=== PATIENT | male | born 1980 | race Two or more races ===

== ENCOUNTER 2019-11-20 19:39 | Emergency (ER) | payer BC ==
[2019-11-20 20:02] VITALS: BMI 33.9
[2019-11-20] MEDS ORDERED: SODIUM CHLORIDE 1,000 ML IV STA (20:39)
[2019-11-20] MEDS ORDERED: ONDANSETRON 4 MG/2 ML VIAL IVPUSH ONE (20:40)
[2019-11-20 21:47] LABS: EPI CELLS 8 /uL (0-25.1); HYALINE CASTS 4 /uL (0-3.1); URINE APPEARANCE TURBID; URINE BILIRUBIN 1+ (NEGATIVE); URINE COLOR RED; URINE GLUCOSE (UA) NEGATIVE (NEGATIVE); URINE KETONE NEGATIVE (NEGATIVE); URINE LEUK ESTERASE 1+ (NEGATIVE); URINE NITRITE POSITIVE (NEGATIVE); URINE PROTEIN 2+ (NEGATIVE); URINE RBC 15508 /uL (0-23.9); URINE WBC 75 /uL (0-25.8)
--- NOTE | 2019-11-20 21:56 | PDOC ---
History of Present Illness - General Chief Complaint: Pain, Acute Stated Complaint: HEMATURIA Time Seen by Provider: 11/20/19 20:23 History Source: Patient Exam Limitations: No Limitations - History of Present Illness Initial Comments: 11/20/19 21:53 Patient is a 39-year-old male who presents to the ED with complaint of left- sided flank pain that he has had since this morning. He states he had a similar pain 4 days ago which resolved after taking 2 Tylenol. The patient states that today a similar pain started and is unrelenting. He took Tylenol without relief. He denies any fevers or chills. He states he has to bear down to urinate and noticed some blood in his urine this evening which caused him to come to the ED. The patient states he was told he had a kidney stone roughly 1 year ago and the pain feels similar. He denies any past medical history or allergies to medications. Past History - Medical History Allergies/Adverse Reactions: Allergies Allergy/AdvReac Type Severity Reaction Status Date / Time No Known Allergies Allergy Verified 11/20/19 21:36 Home Medications: Ambulatory Orders Hydrocodone/Acetaminophen [[place] 5-325 Tablet] 1 each PO TID PRN #9 tablet MDD 3 11/20/19 Tamsulosin HCl [Flomax] 0.4 mg PO DAILY #7 cap.er.24h 11/20/19 levoFLOXacin [Levaquin] 750 mg PO DAILY #5 tab 11/20/19 COPD: No - Psycho-Social/Smoking History Smoking History: Former smoker Have you smoked in the past 12 months: No Information on smoking cessation initiated: No - Substance Abuse Hx (Audit-C & DAST Scrn) How often the patient has a drink containing alcohol: Never Score: In Men: 4 or > Positive; In Women: 3 or > Positive: 0 Screen Result (Pos requires Nsg. Audit-10AR): Negative In the last yr the pt used illegal drug/Rx for NonMed reason: No Score: Yes response is considered Positive: 0 Screen Result (Positive result requires Nsg. DAST-10): Negative Review of Systems - Review of Systems Comments:: 11/20/19 21:55 - Review of Systems Able to Perform ROS?: Yes Constitutional: No: Fever, Chills, Loss of Appetite, Night Sweats, Weakness HEENTM: No: Eye Pain, Vision changes, Ear Pain, Throat Pain, Throat Swelling, Mouth Pain, Difficulty Swallowing Respiratory: No: Cough, Shortness of Breath, Wheezing, Sputum Production Cardiac (ROS): No: Chest Pain, Chest Tightness, Palpitations, Irregular Heart Beat, Edema ABD/GI: No: Nausea, Vomiting, Abdominal Pain, Diarrhea : Positive: Hematuria, urinary pressure, left flank pain Musculoskeletal: No: Muscle Pain, Back Pain, Joint Pain, Muscle Weakness, Neck Pain Integumentary: No: Lesions, Rash Neurological: No: Headache, Numbness, Tingling, Weakness, Speech Difficulties *Physical Exam - Vital Signs Last Vital Signs Temp Pulse Resp BP Pulse Ox 98.4 F 87 19 147/90 100 11/20/19 19:47 11/20/19 19:47 11/20/19 19:47 11/20/19 19:47 11/20/19 19:47 - Physical Exam 11/20/19 21:55 - Physical Exam General Appearance: Nourished, Appropriately Dressed, No Distress HEENT: EOMI, Normal Voice, Hearing Grossly Normal Neck: Supple, No Lymphadenopathy (R), No Lymphadenopathy (L), No Rigidity, No Decreased range of motion Respiratory/Chest: Lungs Clear, Normal Breath Sounds. No Respiratory Distress, No Accessory Muscle Use Cardiovascular: Regular Rhythm, Regular Rate, S1, S2 Gastrointestinal/Abdominal: Normal Bowel Sounds, Soft. No Guarding, No Rebound, No Rigidity; moderate left flank tenderness to palpation with moderate left CVA tenderness. Musculoskeletal: Normal Inspection. No Decreased Range of Motion Extremity: Normal Capillary Refill, Normal Inspection Integumentary: Normal Color, Dry. 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 NML intact, Fully Oriented, Alert, Normal Mood/Affect, Normal Response ED Treatment Course - LABORATORY CBC & Chemistry Diagram: 11/20/19 21:56 11/20/19 21:56 - ADDITIONAL ORDERS Additional order review: Laboratory Results 11/20/19 20:47 Urine Color Red Urine Appearance Turbid Urine pH 5.0 Ur Specific [place] 1.036 H Urine Protein 2+ H Urine Glucose (UA) Negative Urine Ketones Negative Urine Blood 2+ H Urine Nitrite Positive H Urine Bilirubin 1+ H Urine Urobilinogen 1.0 Ur Leukocyte Esterase 1+ H Urine WBC (Auto) 75 Urine RBC (Auto) 35227 Urine Casts (Auto) 4 U Epithel Cells (Auto) 8 - RADIOLOGY Radiology Studies Ordered: Category Date Time Status SPIRAL- RENAL-STONE CT [CT] Stat CT Scan 11/20/19 20:40 Ordered Medical Decision Making - Medical Decision Making 11/20/19 21:56 Assessment: Patient is a 39-year-old male with left flank pain, hematuria and bladder pressure. Plan: -Saline lock ordered -UA, urine culture ordered -Labs ordered -Spiral CT ordered -Patient has declined analgesia at this time -Zofran ordered -Will reassess 11/20/19 22:46 Patient's UA significant for hematuria with positive nitrite consistent with infection. Patient brought to CT scan to rule out infected stone. Ceftriaxone 1 g ordered. 11/20/19 23:[address] Davila of urology for left 4mm obstructing stone with hydro nephrosis and infection. 11/20/19 23:[address] Pepe who states that the patient can be discharged on Levaquin and see him in the office first thing tomorrow morning. We will also send Fl omax and [place] to the patient's pharmacy. The patient has been made aware of the findings of an obstructing stone on the left and has been made aware that he must return to the emergency department immediately if he develops high fevers, shaking chills or profuse vomiting. The patient understands and agrees with this treatment plan and the patient is stable for discharge. Discharge - Discharge Information Problems reviewed: Yes Clinical Impression/Diagnosis: Obstruction of left ureteropelvic junction due to stone, Renal colic on left side Condition: Stable Disposition: HOME - Additional Discharge Information Prescriptions: Tamsulosin HCl [Flomax] 0.4 mg PO DAILY #7 cap.er.24h levoFLOXacin [Levaquin] 750 mg PO DAILY #5 tab Hydrocodone/Acetaminophen [[place] 5-325 Tablet] 1 each PO TID PRN #9 tablet MDD 3 PRN Reason: Pain - Follow up/Referral Referrals: Delroy Pepe MD., MD [Staff Physician] - Call tomorrow (Must follow-up in Dr. Pepe's office first thing tomorrow morning. Call at 8 AM.) - Patient Discharge Instructions Patient Printed Discharge Instructions: DI for Kidney Stones, DI for Urinary Tract Infection (UTI) Additional Instructions: You have an infected, obstructing stone on the left side. Drink plenty of fluids and take the antibiotics as prescribed. Also take the Flomax as prescribed. You can take the [place], pain medication, as needed for severe pain. Be sure to return to the emergency department immediately for high fevers, shaking chills, profuse vomiting or any other worsening symptoms. Follow-up with Dr. Pepe in his office tomorrow, call at 8 AM for an appointment. - Post Discharge Activity Work/Back to School Note: Back to Work
[2019-11-20 22:03] LABS: URINE BACTERIA 0.9 /uL (0-1359)
[2019-11-20 22:06] LABS: EOS % 1.8 % (0-4.5); HEMATOCRIT 43.2 % (35.4-49); HEMOGLOBIN 14.2 GM/dL (11.7-16.9); LYMPH % 31.6 % (8-40); MEAN CELL VOLUME 78.8 fl (80-96); MONO % 8.9 % (3.8-10.2); NEUT % 56.7 % (42.8-82.8); PLATELET COUNT 221 K/MM3 (134-434); RBC 5.48 M/mm3 (4.00-5.60); RDW 13.8 % (11.9-15.9); WHITE BLOOD COUNT 7.5 K/mm3 (4.0-10.0)
[2019-11-20 22:32] LABS: ALBUMIN 4.4 g/dl (3.4-5.0); BLOOD UREA NITROGEN 10.9 mg/dL (7-18); CALCIUM 9.3 mg/dL (8.5-10.1); CREATININE 0.8 mg/dL (0.55-1.3); POTASSIUM 4.6 mmol/L (3.5-5.1); TOT PROT 7.8 g/dl (6.4-8.2)
[2019-11-20] MEDS ORDERED: CEFTRIAXONE 1 GM/50 ML BAG ONE (22:36)
[2019-11-20] MEDS ORDERED: CEFTRIAXONE 1 GM in DEXTROSE 5%-WATER - 50 ML IVPB ONE (22:45)
[2019-11-20 22:47] LABS: BILIRUBIN,TOTAL 0.2 mg/dL (0.2-1)
[2019-11-21 00:52] VITALS: BP 148/80; PULSE 70; TEMP 98
== END 2019-11-21 00:30 | disposition home or self-care (01) ==
LOC: JER 19:39
PROC: 3E03329 Introduction of Other Anti-infective into Peripheral Vein, Percutaneous Approach (ICD-10-PCS; principal; 2019-11-20)
PROC: 3E033GC Introduction of Other Therapeutic Substance into Peripheral Vein, Percutaneous Approach (ICD-10-PCS; 2019-11-20)
PROC: 3E0337Z Introduction of Electrolytic and Water Balance Substance into Peripheral Vein, Percutaneous Approach (ICD-10-PCS; 2019-11-20)
DX: N13.0 Hydronephrosis with ureteropelvic junction obstruction (principal); N23 Unspecified renal colic
CPT/HCPCS: 36415; 74176-TC; 80053; 81003; 83690; 85025; 87086; 99284-25

== ENCOUNTER 2019-12-21 03:40 | Emergency (ER) | payer BC ==
[2019-12-21 04:14] VITALS: TEMP 98.2
[2019-12-21 04:43] LABS: BASO % 0.8 % (0-2.0); HEMATOCRIT 44.2 % (35.4-49); HEMOGLOBIN 14.8 GM/dL (11.7-16.9); LYMPH % 43.4 % (8-40); MCH 26.6 pg (25.7-33.7); MCHC 33.5 g/dl (32.0-35.9); MEAN CELL VOLUME 79.4 fl (80-96); MEAN PLT VOLUME 8.5 fl (7.5-11.1); MONO % 10.8 % (3.8-10.2); PLATELET COUNT 190 K/MM3 (134-434); RBC 5.57 M/mm3 (4.00-5.60); RDW 13.9 % (11.9-15.9); WHITE BLOOD COUNT 7.2 K/mm3 (4.0-10.0)
[2019-12-21 04:47] LABS: EPI CELLS 5 /uL (0-25.1); HYALINE CASTS 0 /uL (0-3.1); URINE APPEARANCE CLOUDY; URINE BACTERIA 6 /uL (0-1359); URINE BILIRUBIN NEGATIVE (NEGATIVE); URINE COLOR DK YELLOW; URINE GLUCOSE (UA) NEGATIVE (NEGATIVE); URINE KETONE NEGATIVE (NEGATIVE); URINE LEUK ESTERASE TRACE (NEGATIVE); URINE NITRITE NEGATIVE (NEGATIVE); URINE PROTEIN 2+ (NEGATIVE); URINE RBC 3559 /uL (0-23.9); URINE WBC 15 /uL (0-25.8)
--- OUTSIDE RECORDS SUMMARY | 2019-12-21 04:54 | XMS ---
:1980 Author Organization [facility] Support Name Relationship Address Phone [facility] [place] [address] ZOLTAN PAYAN [address] [place] [address] ZOLTAN PAYAN Spouse [address] [place] [place] [address] Re-disclosure Warning The records that you are about to access may contain information from federally- assisted alcohol or drug abuse programs. If such information is present, then the following federally mandated warning applies: This information has been disclosed to you from records protected by federal confidentiality rules (42 CFR part 2). The federal rules prohibit you from making any further disclosure of this information unless further disclosure is expressly permitted by the written consent of the person to whom it pertains or as otherwise permitted by 42 CFR part 2. A general authorization for the release of medical or other information is NOT sufficient for this purpose. The Federal rules restrict any use of the information to criminally investigate or prosecute any alcohol or drug abuse patient.The records that you are about to access may contain highly sensitive health information, the redisclosure of which is protected by Article 27-F of the [facility] Public Health law. If you continue you may haveaccess to information: Regarding HIV / AIDS; Provided by facilities licensed or operated by the [facility] Office of Mental Health; or Provided by the [facility] Office for People With Developmental Disabilities. If such information is present, then the following [facility] mandated warning applies: This information has been disclosed to you from confidential records which are protected by state law. State law prohibits you from making any further disclosure of this information without the specific written consent of the person to whom it pertains, or as otherwise permitted by law. Any unauthorized further disclosure in violation of state law may result in a fine or [place] health care facility sentence or both. A general authorization for the release of medical or other information is NOT sufficient authorization for further disclosure. Insurance Providers Payer name Policy type / Policy ID Covered Covered democrat's Policy Plan Coverage type democrat ID relationship to Garnett Information garnett [employer] PPO [id number] SP [id number] Results ID Date Data Source [id number] 07/24/2019 04:14:00 PM EDT [facility] Name Value Range Interpretation Code Description Data Chata rce(s) Supporting Document(s ) COV2 [facility] This lab was ordered by NATASHA ALEJANDRO and reported by [facility] Procedure
[2019-12-21] MEDS ORDERED: ACETAMINOPHEN 1000 MG/100 ML VIAL (NON FORMULARY) IVPB ONE (05:07)
[2019-12-21] MEDS ORDERED: SODIUM CHLORIDE 0.9% 500 ML INFUS.BAG IV ONE (05:07)
[2019-12-21 05:15] LABS: POTASSIUM 4.3 mmol/L (3.5-5.1)
[2019-12-21 05:18] LABS: CALCIUM 9.1 mg/dL (8.5-10.1)
[2019-12-21 05:20] LABS: ALBUMIN 4.6 g/dl (3.4-5.0); BLOOD UREA NITROGEN 12.6 mg/dL (7-18)
[2019-12-21] MEDS ORDERED: ACETAMINOPHEN INJECTION 100 ML IVPB ONE (05:20)
[2019-12-21 05:24] LABS: BILIRUBIN,TOTAL 0.2 mg/dL (0.2-1); TOT PROT 7.8 g/dl (6.4-8.2)
[2019-12-21] MEDS ORDERED: KETOROLAC TROMETHAMINE 30 MG/1 ML VIAL IVPUSH ONE (05:24)
[2019-12-21 05:42] LABS: URINE CRYSTALS 2+ /hpf
--- NOTE | 2019-12-21 05:42 | PDOC ---
History of Present Illness - General Chief Complaint: Pain Stated Complaint: PAIN Time Seen by Provider: 12/21/19 04:29 History Source: Patient Exam Limitations: No Limitations - History of Present Illness Initial Comments: 12/21/19 05:38 39M PMH renal stones presenting with one day of on/off left flank pain and hematuria. Pain is described as feeling exactly the same as prior kidney stones. Denies n/v, f/c. No testicular pain or swelling. Requesting Dr. Dereje Myers for Urology. Past History - Medical History Allergies/Adverse Reactions: Allergies Allergy/AdvReac Type Severity Reaction Status Date / Time No Known Allergies Allergy Verified 11/20/19 21:36 Home Medications: Ambulatory Orders Hydrocodone/Acetaminophen [[place] 5-325 Tablet] 1 each PO TID PRN #9 tablet MDD 3 11/20/19 Tamsulosin HCl [Flomax] 0.4 mg PO DAILY #7 cap.er.24h 11/20/19 levoFLOXacin [Levaquin] 750 mg PO DAILY #5 tab 11/20/19 COPD: No - Psycho-Social/Smoking History Smoking History: Former smoker Have you smoked in the past 12 months: No If you are a former smoker, when did you quit?: 2019 Information on smoking cessation initiated: No - Substance Abuse Hx (Audit-C & DAST Scrn) How often the patient has a drink containing alcohol: Monthly or less Score: In Men: 4 or > Positive; In Women: 3 or > Positive: 1 Screen Result (Pos requires Nsg. Audit-10AR): Negative In the last yr the pt used illegal drug/Rx for NonMed reason: No Score: Yes response is considered Positive: 0 Screen Result (Positive result requires Nsg. DAST-10): Negative Review of Systems - Review of Systems Comments:: CONSTITUTIONAL: Denies F / C HEENT: Denies headache RESP: Denies SOB, cough CARD: Denies chest pain GI: + left flank pain. Denies N / V / D, bloody stool, inability to tolerate PO : + hematuria NEURO: Denies numbness, tingling, weakness MSK: Denies back pain SKIN: Denies rashes *Physical Exam - Vital Signs Last Vital Signs Temp Pulse Resp BP Pulse Ox 98.2 F 72 16 164/96 99 12/21/19 04:11 12/21/19 04:11 12/21/19 04:11 12/21/19 04:11 12/21/19 04:11 - Physical Exam GEN: Well appearing, NAD, comfortable. AAOx3. HEENT: NC/AT, EOMI, PERRL. No facial asymmetry. Moist mucous membranes. Normal voice. Supple neck w/ FROM. CV: S1/S2, RRR, no m/r/g LUNG: CTAB, no wheezes, crackles, rales, rhonchi. GI: Soft, ndnt, +BS, no guarding, no rebound. No masses. Neg CVAT b/l. MSK: No obvious deformities of all extremities. SKIN: Warm, dry, no rashes appreciated. PSYCH: Normal mood and affect. NEURO: Moving all extremities well. ambulatory. ED Treatment Course - LABORATORY CBC & Chemistry Diagram: 12/21/19 04:30 12/21/19 04:30 - ADDITIONAL ORDERS Additional order review: Laboratory Results 12/21/19 12/21/19 04:30 04:30 Sodium 139 Potassium 4.3 Chloride 106 Carbon Dioxide 29 Anion Gap 4 L BUN 12.6 Creatinine 1.0 Est GFR (CKD-EPI)AfAm 109.40 Est GFR (CKD-EPI)NonAf 94.39 Random Glucose 108 H Calcium 9.1 Total Bilirubin 0.2 AST 28 ALT 70 H Alkaline Phosphatase 89 Total Protein 7.8 Albumin 4.6 Urine Color Dk yellow Urine Appearance Cloudy Urine pH 5.0 Ur Specific [place] 1.034 Urine Protein 2+ H Urine Glucose (UA) Negative Urine Ketones Negative Urine Blood 3+ H Urine Nitrite Negative Urine Bilirubin Negative Urine Urobilinogen 1.0 Ur Leukocyte Esterase Trace Urine WBC (Auto) 15 Urine RBC (Auto) 3559 Urine Casts (Auto) 0 U Epithel Cells (Auto) 5 Urine Bacteria (Auto) 6 12/21/19 04:30 RBC 5.57 MCV 79.4 L MCHC 33.5 RDW 13.9 MPV 8.5 Neutrophils % 41.0 L D Lymphocytes % 43.4 H D Monocytes % 10.8 H Eosinophils % 4.0 D Basophils % 0.8 - RADIOLOGY Radiology Studies Ordered: Category Date Time Status SPIRAL- RENAL-STONE CT [CT] Stat CT Scan 12/21/19 05:07 Ordered - Medications Given in the ED: ED Medications Discontinued Medications Generic Name Dose Route Start Last Admin Trade Name Dalton PRN Reason Stop Dose Admin Acetaminophen 1,000 mg 12/21/19 05:07 12/21/19 05:24 Ofirmev Injection - IVPB 12/21/19 05:08 1,000 mg ONCE ONE Administration Sodium Chloride 1,000 ml 12/21/19 05:07 12/21/19 05:24 Normal Saline - IV 12/21/19 05:08 1,000 ml ONCE ONE Administration Medical Decision Making - Medical Decision Making 39M w/ left flank pain and hematuria similar to his prior kidney stones. Afebrile. Benign exam. Very likely renal stone. - CBC, CMP - UA - Spiral CT - Fluids, toradol 12/21/19 06:41 labs reviewed will sign out to day team for further management 12/21/19 06:[address] [facility] [address] A/P IMPRESSION EXAM: CT abdomen and pelvis without contrast HISTORY: Evaluate for left renal stone COMPARISON: None. FINDINGS: Lung bases are clear. The visualized cardiac chambers are normal size and configuration. There is mild left hydronephrosis and perinephric edema secondary to a 5 mm mid left ureteral stone. Small right renal stone is noted. Normal liver, gallbladder, pancreas, spleen, adrenal glands . The stomach and abdominal small and large bowel are normal. There is no aortic aneurysm. There is no significant retroperitoneal lymphadenopathy. The pelvic small and large bowel are normal. The appendix is normal The urinary bladder and prostate gland are normal. No pelvic free fluid is identified. There is no significant pelvic lymphadenopathy. Small fat-containing bilateral inguinal hernias are noted. IMPRESSION: Mottled left hydronephrosis and perinephric edema secondary to a 5 mm mid left ureteral stone. Small right renal stone. One or more of the following dose reduction techniques were used: automated exposure control, adjustment of the mA and/or kV according to patient size, use of iterative reconstructive technique. THIS DOCUMENT HAS BEEN ELECTRONICALLY SIGNED Estevan Oro MD 12/21/2019 06:44 JASE Gomez Please call Imaging Transcript Evaluator [phone] ([phone]) with questions. INTERPRETING RADIOLOGIST: Hector Oro MD Electronically Signed: Dec 21, 2019 06:46AM EDT will sign out to day team for further management urology c/s admit (no PCP) Discharge - Discharge Information Problems reviewed: Yes Clinical Impression/Diagnosis: Left renal stone Condition: Stable - Admission Yes - Follow up/Referral Referrals: [facility] [place] [Provider Group] - Patient Discharge Instructions - Post Discharge Activity
[2019-12-21] MEDS ORDERED: KETOROLAC TROMETHAMINE 30 MG/1 ML VIAL ONE (05:43)
[2019-12-21] MEDS ORDERED: TAMSULOSIN HCL 0.4 MG CAP PO ONE (06:20)
--- NOTE | 2019-12-21 06:20 | PDOC ---
Attending Attestation - Resident Resident Name: Dwain Rapp - ED Attending Attestation I have performed the following: I have examined & evaluated the patient, The case was reviewed & discussed with the resident, I agree w/resident's findings & plan - HPI HPI: 12/21/19 06:19 Pt comes with renal colic and a hx of kidney stones in the past. He has hematuria - Physicial Exam PE: 12/21/19 06:53 Pt has left flank pain. Pt afebrile Pt has normal vitals heart RRR lungs CTAb no flank pain - Medical Decision Making 12/21/19 06:52 Patient Name: DANUTA PAYAN THIS IS A PRELIMINARY REPORT DATE OF SERVICE: 2019-12-21 06:13:45 IMAGES: 545 EXAM: CT abdomen and pelvis without contrast HISTORY: Evaluate for left renal stone COMPARISON: None. FINDINGS: Lung bases are clear. The visualized cardiac chambers are normal size and configuration. There is mild left hydronephrosis and perinephric edema secondary to a 5 mm mid left ureteral stone. Small right renal stone is noted. Normal liver, gallbladder, pancreas, spleen, adrenal glands . The stomach and abdominal small and large bowel are normal. There is no aortic aneurysm. There is no significant retroperitoneal lymphadenopathy. The pelvic small and large bowel are normal. The appendix is normal The urinary bladder and prostate gland are normal. No pelvic free fluid is identified. There is no significant pelvic lymphadenopathy. Small fat-containing bilateral inguinal hernias are noted. IMPRESSION: Mottled left hydronephrosis and perinephric edema secondary to a 5 mm mid left ureteral stone. Small right renal stone. 12/21/19 23:30 Pt signed out to the day team to reeval. Pt may require admission, as 50% of stones 5mm or greater do not pass Discharge - Discharge Information Problems reviewed: Yes Clinical Impression/Diagnosis: Left renal stone Condition: Stable Disposition: HOME - Additional Discharge Information Prescriptions: Tamsulosin HCl [Flomax] 0.4 mg PO DAILY 7 Days #7 cap.er.24h - Follow up/Referral Referrals: [facility] [place] [Provider Group] - Patient Discharge Instructions Patient Printed Discharge Instructions: DI for Kidney Stones Additional Instructions: Discharge Instructions: You were seen in the emergency department for abdominal pain, and you were found to have a kidney stone. You had a CT scan to confirm this, and the stone was found to be 5mm in size. The stone will most likely pass on its own. Home Care: - You have been prescribed a short course of tamsulosin (Flomax) to help pass the stone. You may wish to discuss continuing this medication with your urologist to help treat your enlarged prostate. - You may use over the counter pain medications such as ibuprofen (Motrin, Advil) 600mg every 6 hours as needed for pain. If you have continued pain, you may alternate this medication with acetaminophen (Tylenol) 650-1000mg. - Make sure you are drinking plenty of fluids to help pass the kidney stone - You have been provided a urine strainer. If you are able to catch the kidney stone when you pass it, bring the stone to your follow up urology appointment. Follow Up: - You have been referred to a urologist for follow up, Dr Myers. You should call on Monday to make an appointment within the next week, especially if your symptoms do not resolve over the next few days. - Seek immediate medical care if you have worsening of your symptoms, you do not pass the stone within 3-4 days, you stop making urine entirely, you have noticeable blood in your urine, you develop fevers to 101F, or you have any medical emergency. - Post Discharge Activity
[2019-12-21] MEDS ORDERED: TAMSULOSIN HCL 0.4 MG CAP ONE (06:32)
[2019-12-21 06:39] VITALS: BP 140/66; PULSE 64
--- NOTE | 2019-12-21 07:17 | PDOC ---
*Physical Exam - Vital Signs Last Vital Signs Temp Pulse Resp BP Pulse Ox 98.2 F 64 18 140/66 98 12/21/19 04:11 12/21/19 06:38 12/21/19 06:38 12/21/19 06:38 12/21/19 06:38 <Karen Sánchez - Last Filed: 12/21/19 07:57> - Vital Signs Last Vital Signs Temp Pulse Resp BP Pulse Ox 98.2 F 64 18 140/66 98 12/21/19 04:11 12/21/19 06:38 12/21/19 06:38 12/21/19 06:38 12/21/19 06:38 - Physical Exam 12/21/19 07:17 Sign out was given by Dr. Rapp. Called the transfer service for Dr. Johnson <Micha Macdonald - Last Filed: 12/21/19 08:06> ED Treatment Course - LABORATORY CBC & Chemistry Diagram: 12/21/19 04:30 12/21/19 04:30 - ADDITIONAL ORDERS Additional order review: Laboratory Results 12/21/19 12/21/19 04:30 04:30 Sodium 139 Potassium 4.3 Chloride 106 Carbon Dioxide 29 Anion Gap 4 L BUN 12.6 Creatinine 1.0 Est GFR (CKD-EPI)AfAm 109.40 Est GFR (CKD-EPI)NonAf 94.39 Random Glucose 108 H Calcium 9.1 Total Bilirubin 0.2 AST 28 ALT 70 H Alkaline Phosphatase 89 Total Protein 7.8 Albumin 4.6 Urine Color Dk yellow Urine Appearance Cloudy Urine pH 5.0 Ur Specific [place] 1.034 Urine Protein 2+ H Urine Glucose (UA) Negative Urine Ketones Negative Urine Blood 3+ H Urine Nitrite Negative Urine Bilirubin Negative Urine Urobilinogen 1.0 Ur Leukocyte Esterase Trace Urine WBC (Auto) 15 Urine RBC (Auto) 3559 Urine Casts (Auto) 0 U Epithel Cells (Auto) 5 Urine Crystals (Auto) 2+ Urine Bacteria (Auto) 6 12/21/19 04:30 RBC 5.57 MCV 79.4 L MCHC 33.5 RDW 13.9 MPV 8.5 Neutrophils % 41.0 L D Lymphocytes % 43.4 H D Monocytes % 10.8 H Eosinophils % 4.0 D Basophils % 0.8 - Medications Given in the ED: ED Medications Discontinued Medications Generic Name Dose Route Start Last Admin Trade Name Freq PRN Reason Stop Dose Admin Acetaminophen 1,000 mg 12/21/19 05:07 12/21/19 05:24 Ofirmev Injection - IVPB 12/21/19 05:08 1,000 mg ONCE ONE Administration Ketorolac Tromethamine 30 mg 12/21/19 05:24 12/21/19 05:46 Toradol Injection - IVPUSH 12/21/19 05:25 30 mg ONCE ONE Administration Sodium Chloride 1,000 ml 12/21/19 05:07 12/21/19 05:24 Normal Saline - IV 12/21/19 05:08 1,000 ml ONCE ONE Administration Tamsulosin HCl 0.4 mg 12/21/19 06:20 12/21/19 06:34 Flomax - PO 12/21/19 06:21 0.4 mg ONCE ONE Administration <Karen Sánchez - Last Filed: 12/21/19 07:57> - LABORATORY CBC & Chemistry Diagram: 12/21/19 04:30 12/21/19 04:30 - ADDITIONAL ORDERS Additional order review: Laboratory Results 12/21/19 12/21/19 04:30 04:30 Sodium 139 Potassium 4.3 Chloride 106 Carbon Dioxide 29 Anion Gap 4 L BUN 12.6 Creatinine 1.0 Est GFR (CKD-EPI)AfAm 109.40 Est GFR (CKD-EPI)NonAf 94.39 Random Glucose 108 H Calcium 9.1 Total Bilirubin 0.2 AST 28 ALT 70 H Alkaline Phosphatase 89 Total Protein 7.8 Albumin 4.6 Urine Color Dk yellow Urine Appearance Cloudy Urine pH 5.0 Ur Specific [place] 1.034 Urine Protein 2+ H Urine Glucose (UA) Negative Urine Ketones Negative Urine Blood 3+ H Urine Nitrite Negative Urine Bilirubin Negative Urine Urobilinogen 1.0 Ur Leukocyte Esterase Trace Urine WBC (Auto) 15 Urine RBC (Auto) 3559 Urine Casts (Auto) 0 U Epithel Cells (Auto) 5 Urine Crystals (Auto) 2+ Urine Bacteria (Auto) 6 12/21/19 04:30 RBC 5.57 MCV 79.4 L MCHC 33.5 RDW 13.9 MPV 8.5 Neutrophils % 41.0 L D Lymphocytes % 43.4 H D Monocytes % 10.8 H Eosinophils % 4.0 D Basophils % 0.8 - Medications Given in the ED: ED Medications Discontinued Medications Generic Name Dose Route Start Last Admin Trade Name [place] PRN Reason Stop Dose Admin Acetaminophen 1,000 mg 12/21/19 05:07 12/21/19 05:24 Ofirmev Injection - IVPB 12/21/19 05:08 1,000 mg ONCE ONE Administration Ketorolac Tromethamine 30 mg 12/21/19 05:24 12/21/19 05:46 Toradol Injection - IVPUSH 12/21/19 05:25 30 mg ONCE ONE Administration Sodium Chloride 1,000 ml 12/21/19 05:07 12/21/19 05:24 Normal Saline - IV 12/21/19 05:08 1,000 ml ONCE ONE Administration Tamsulosin HCl 0.4 mg 12/21/19 06:20 12/21/19 06:34 Flomax - PO 12/21/19 06:21 0.4 mg ONCE ONE Administration <Micha Macdonald - Last Filed: 12/21/19 08:06> Medical Decision Making - Medical Decision Making 12/21/19 07:26 Dr. Johnson called back. Will admit to hospitalist, put on flomax 0.4 daily, if the stone is not passing for 24 hrs, will do surgery the next day. [facility]MD sent. 12/21/19 08:02 Cancelled [facility]MD. Patient chose to go home. Tomorrow is his mother's . He will be prescribed Flomax and follow up with urologist Dr. Johnson. Pain control instruction was given. Stone strainer was given. Pre caution return was given. Stable to d/c <Micha Macdonald - Last Filed: 12/21/19 08:06> Discharge - Discharge Information Problems reviewed: Yes <Karen Sánchez - Last Filed: 12/21/19 07:57> - Discharge Information Problems reviewed: Yes <Micha Macdonald - Last Filed: 12/21/19 08:06> - Discharge Information Clinical Impression/Diagnosis: Left renal stone Condition: Stable - Additional Discharge Information Prescriptions: Tamsulosin HCl [Flomax] 0.4 mg PO DAILY 7 Days #7 cap.er.24h - Follow up/Referral Referrals: [facility] [place] [facility] [place] [Provider Group] - Patient Discharge Instructions Additional Instructions: Discharge Instructions: You were seen in the emergency department for abdominal pain, and you were found to have a kidney stone. You had a CT scan to confirm this, and the stone was found to be 5mm in size. The stone will most likely pass on its own. Home Care: - You have been prescribed a short course of tamsulosin (Flomax) to help pass the stone. You may wish to discuss continuing this medication with your urologist to help treat your enlarged prostate. - You may use over the counter pain medications such as ibuprofen (Motrin, Advil) 600mg every 6 hours as needed for pain. If you have continued pain, you may alternate this medication with acetaminophen (Tylenol) 650-1000mg. - Make sure you are drinking plenty of fluids to help pass the kidney stone - You have been provided a urine strainer. If you are able to catch the kidney stone when you pass it, bring the stone to your follow up urology appointment. Follow Up: - You have been referred to a urologist for follow up, Dr Myers. You should call on Monday to make an appointment within the next week, especially if your symptoms do not resolve over the next few days. - Seek immediate medical care if you have worsening of your symptoms, you do not pass the stone within 3-4 days, you stop making urine entirely, you have noticeable blood in your urine, you develop fevers to 101F, or you have any medical emergency. - Post Discharge Activity
== END 2019-12-21 08:24 | disposition home or self-care (01) ==
LOC: JER 03:40
PROC: 3E0333Z Introduction of Anti-inflammatory into Peripheral Vein, Percutaneous Approach (ICD-10-PCS; principal; 2019-12-21)
PROC: 3E033GC Introduction of Other Therapeutic Substance into Peripheral Vein, Percutaneous Approach (ICD-10-PCS; 2019-12-21)
DX: N20.0 Calculus of kidney (principal)
CPT/HCPCS: 36415; 74176-TC; 80053; 81003; 85025; 99284-25; J0131